=== PATIENT | male | born 1950 | race Caucasian/White ===

== ENCOUNTER 2020-06-23 12:41 | Emergency (ER) | payer OTHER | END 2020-06-23 14:28 | disposition left against medical advice (07) | LOC: ER1 12:41 | DX: Z53.21 Procedure and treatment not carried out due to patient leaving prior to being seen by health care provider (principal) | CPT/HCPCS: 93005 ==

== ENCOUNTER 2020-12-11 18:23 | Emergency (ER) | payer OTHER ==
[2020-12-11 21:33] LABS: HEMOGLOBIN 12.6 gm/dl (14.0-17.5); RED BLOOD COUNT 4.35 M/UL (4.20-5.50); WHITE BLOOD COUNT 4.9 K/UL (4.5-11.0)
[2020-12-11 22:16] LABS: BUN/CREATININE RATIO 15 (0-10)
[2020-12-11] MEDS ORDERED: PROVENTIL HFA6.7 GM INH (23:55)
[2020-12-11] MEDS ORDERED: IBUPROFEN800 MG PO (23:55)
== END 2020-12-12 02:45 | disposition home or self-care (01) ==
LOC: ER1 18:23
PROVIDERS: Physician Assistant
DX: Z23 Encounter for immunization (principal); U07.1 COVID-19; E11.9 Type 2 diabetes mellitus without complications; E78.5 Hyperlipidemia, unspecified; I10 Essential (primary) hypertension; Z95.1 Presence of aortocoronary bypass graft; Z79.01 Long term (current) use of anticoagulants
CPT/HCPCS: 71045; 80053; 82550; 82553; 83874; 83880; 84484; 85025; 99285; M0243; U0002

== ENCOUNTER 2020-12-28 08:08 | Inpatient (IN) | payer OTHER ==
[~2020-12-28] VITALS: Ht 172.7 cm; Wt 115.7 kg
[~2020-12-28 08:08] MED LIST: IBUPROFEN800 MG PO; PROVENTIL HFA6.7 GM INH
[2020-12-28 09:44] LABS: HEMOGLOBIN 11.8 gm/dl (14.0-17.5); RED BLOOD COUNT 4.16 M/UL (4.20-5.50); WHITE BLOOD COUNT 5.9 K/UL (4.5-11.0)
[2020-12-28 11:05] LABS: BUN/CREATININE RATIO 15 (0-10)
[2020-12-28] MEDS ORDERED: ATORVASTATIN CA80 MG PO (13:41)
[2020-12-28] MEDS ORDERED: ELIQUIS5 MG PO (13:41)
[2020-12-28] MEDS ORDERED: BUMETANIDE2 MG PO (13:41)
[2020-12-28] MEDS ORDERED: DOVONEX60 GM TOP (13:44)
[2020-12-28] MEDS ORDERED: BENTYL 10MG CAP10 MG PO (13:46)
[2020-12-28] MEDS ORDERED: CHOLESTYRAMINE P4 GM PO (13:46)
[2020-12-28] MEDS ORDERED: DOCUSATE SODIU1 EAC1 PO (13:47)
[2020-12-28] MEDS ORDERED: FINASTERIDE5 MG PO (13:48)
[2020-12-28] MEDS ORDERED: FLUOROURACIL40 GM TOP (13:50)
[2020-12-28] MEDS ORDERED: NOVOLOG FL100 UNIT/1 INJ (13:51)
[2020-12-28] MEDS ORDERED: LANTUS SOL100 UNIT/1 INJ (13:51)
[2020-12-28] MEDS ORDERED: ISOSORBIDE MONO30 MG PO (13:52)
[2020-12-28] MEDS ORDERED: LISINOPRIL40 MG PO (13:52)
[2020-12-28] MEDS ORDERED: PROTONIX40 MG PO (13:53)
[2020-12-28] MEDS ORDERED: METOPROLOL SUCC50 MG PO (13:53)
[2020-12-28] MEDS ORDERED: SOTALOL120 MG PO (13:54)
[2020-12-28] MEDS ORDERED: TERAZOSIN HCL10 MG PO (13:54)
--- NOTE | 2020-12-29 00:34 | NUR ---
12/28/2020 @ 23:15 - Patient on room air states that he is feeling short of breath and that it is hard to breathe. O2 sat at 91%. Oxygen applied at 2L. O2 sat increases to 94%. Patient states it is still hard to breathe. MD notified of patient conidition, obtained order to titrate O2 to keep sat above 92%. No other orders obtained. RT called, breathing treatment not due until 01:00. Explained to patient that due to covid and having a P.E, it is expected to feel like he is short of breath. Instructed patient to stay in bed to rest, keep oxygen cannula on. Patient verbalized understanding. Will continue to [facility].
[2020-12-29 02:58] LABS: HEMOGLOBIN 11.7 gm/dl (14.0-17.5); RED BLOOD COUNT 4.11 M/UL (4.20-5.50)
[2020-12-29 03:52] LABS: BUN/CREATININE RATIO 17 (0-10)
--- NOTE | 2020-12-29 12:47 | NUR ---
NOTIFIED DR. VAZQUEZ OF TELEMETRY REPORT OF 6 BEATS NSVT. NEW ORDER NOTED TO ADD MAGNESIUM TO LAB WORK AT 1300.
[2020-12-30 06:06] LABS: HEMOGLOBIN 11.2 gm/dl (14.0-17.5); RED BLOOD COUNT 3.99 M/UL (4.20-5.50); WHITE BLOOD COUNT 7.3 K/UL (4.5-11.0)
[2020-12-30 06:30] LABS: BUN/CREATININE RATIO 15 (0-10)
[2020-12-31 02:30] LABS: HEMOGLOBIN 11.5 gm/dl (14.0-17.5); RED BLOOD COUNT 4.03 M/UL (4.20-5.50); WHITE BLOOD COUNT 8.4 K/UL (4.5-11.0)
[2020-12-31 02:57] LABS: BUN/CREATININE RATIO 16 (0-10)
--- NOTE | 2020-12-31 22:59 | NUR ---
2040 PTT CRITICAL AT 212. CALLED TO DR. MAHMOOD. USE PROTOCOL, WILL HOLD FOR 2 HOURS AND RECHECK.
[2021-01-01 05:11] LABS: HEMOGLOBIN 12.2 gm/dl (14.0-17.5); RED BLOOD COUNT 4.27 M/UL (4.20-5.50); WHITE BLOOD COUNT 8.7 K/UL (4.5-11.0)
[2021-01-01 06:09] LABS: BUN/CREATININE RATIO 20 (0-10)
[2021-01-02 07:50] LABS: HEMOGLOBIN 10.7 gm/dl (14.0-17.5); RED BLOOD COUNT 3.88 M/UL (4.20-5.50)
[2021-01-02 08:21] LABS: BUN/CREATININE RATIO 22 (0-10)
[2021-01-03 03:31] LABS: HEMOGLOBIN 11.4 gm/dl (14.0-17.5); RED BLOOD COUNT 4.06 M/UL (4.20-5.50); WHITE BLOOD COUNT 8.9 K/UL (4.5-11.0)
[2021-01-03 03:49] LABS: BUN/CREATININE RATIO 22 (0-10)
[2021-01-04 09:52] LABS: HEMOGLOBIN 11.4 gm/dl (14.0-17.5); RED BLOOD COUNT 4.07 M/UL (4.20-5.50); WHITE BLOOD COUNT 8.1 K/UL (4.5-11.0)
[2021-01-04 10:13] LABS: BUN/CREATININE RATIO 24 (0-10)
--- NOTE | 2021-01-04 14:46 | NUR ---
PERFORMED WALK TEST WITH THE PT BEFORE BEING DISCHARGED HOME. OXYGEN SATURATION DROPPED TO 92%.
[2021-01-04] MEDS ORDERED: DOXYCYCLINE HY100 M2 PO (20:25)
[2021-01-04] MEDS ORDERED: DECADRON6 MG PO (20:25)
[2021-01-04] MEDS ORDERED: HUMIBID LA TAB600 MG PO (20:25)
[2021-01-04] MEDS ORDERED: PROVENTIL HFA6.7 GM INH (20:25)
[2021-01-04] MEDS ORDERED: JANTOVEN1 MG PO (20:25)
[2021-01-04] MEDS ORDERED: OMNICEF 300 MG300 MG PO (20:33)
== END 2021-01-04 21:09 | disposition home health service (06) | DRG 175 ==
LOC: ER1 08:08 → CDU 11:29 → M/S 11:29
PROVIDERS: Internal Medicine; ADMIT Internal Medicine
PROC: 3E0333Z Introduction of Anti-inflammatory into Peripheral Vein, Percutaneous Approach (ICD-10-PCS; 2020-12-28)
PROC: B24BZZ4 Ultrasonography of Heart with Aorta, Transesophageal (ICD-10-PCS; principal; 2020-12-29)
PROC: XW033E5 Introduction of Remdesivir Anti-infective into Peripheral Vein, Percutaneous Approach, New Technology Group 5 (ICD-10-PCS; 2020-12-29)
DX: I26.99 Other pulmonary embolism without acute cor pulmonale (principal); J96.01 Acute respiratory failure with hypoxia; U07.1 COVID-19; J12.82 Pneumonia due to coronavirus disease 2019; E11.9 Type 2 diabetes mellitus without complications; I10 Essential (primary) hypertension; E87.6 Hypokalemia; E78.5 Hyperlipidemia, unspecified; K21.9 Gastro-esophageal reflux disease without esophagitis; I08.1 Rheumatic disorders of both mitral and tricuspid valves; I25.10 Atherosclerotic heart disease of native coronary artery without angina pectoris; F17.210 Nicotine dependence, cigarettes, uncomplicated; I48.91 Unspecified atrial fibrillation; Z79.4 Long term (current) use of insulin; Z95.1 Presence of aortocoronary bypass graft; Z95.5 Presence of coronary angioplasty implant and graft; Z79.01 Long term (current) use of anticoagulants; Z82.49 Family history of ischemic heart disease and other diseases of the circulatory system
CPT/HCPCS: ECHO; 36415; 36600; 71045; 80053; 82550; 82553; 82803; 82962; 83605; 83690; 83735; 83874; 83880; 84132; 84484; 85025; 85027; 85379; 85610; 85652; 85730; 86140; 87040; 93005; 93306; 93970; 94640; 94664; 94760; 97161; 99285; J1100; J1644; J1650; J2185; J3475; J7030; Q9967; U0002

== ENCOUNTER 2021-02-08 19:20 | Inpatient (IN) | payer MEDICARE ==
[~2021-02-08] VITALS: Ht 172.7 cm; Wt 115.2 kg
[~2021-02-08 19:20] MED LIST changes: +ATORVASTATIN CA80 MG PO; +BENTYL 10MG CAP10 MG PO; +BUMETANIDE2 MG PO; +CHOLESTYRAMINE P4 GM PO; +DECADRON6 MG PO; +DOCUSATE SODIU1 EAC1 PO; +DOVONEX60 GM TOP; +DOXYCYCLINE HY100 M2 PO; +ELIQUIS5 MG PO; +FINASTERIDE5 MG PO; +FLUOROURACIL40 GM TOP; +HUMIBID LA TAB600 MG PO; +ISOSORBIDE MONO30 MG PO; +JANTOVEN1 MG PO; +LANTUS SOL100 UNIT/1 INJ; +LISINOPRIL40 MG PO; +METOPROLOL SUCC50 MG PO; +NOVOLOG FL100 UNIT/1 INJ; +OMNICEF 300 MG300 MG PO; +PROTONIX40 MG PO; +SOTALOL120 MG PO; +TERAZOSIN HCL10 MG PO
[2021-02-08 20:38] LABS: HEMOGLOBIN 11.6 gm/dl (14.0-17.5); RED BLOOD COUNT 4.17 M/UL (4.20-5.50); WHITE BLOOD COUNT 10.9 K/UL (4.5-11.0)
[2021-02-08 21:22] LABS: BUN/CREATININE RATIO 13 (0-10)
[2021-02-10 07:12] LABS: RED BLOOD COUNT 3.86 M/UL (4.20-5.50)
[2021-02-10 09:11] LABS: BUN/CREATININE RATIO 11 (0-10)
[2021-02-11 05:39] LABS: HEMOGLOBIN 9.6 gm/dl (14.0-17.5); WHITE BLOOD COUNT 7.2 K/UL (4.5-11.0)
[2021-02-11 05:40] LABS: RED BLOOD COUNT 3.41 M/UL (4.20-5.50)
[2021-02-11 06:50] LABS: BUN/CREATININE RATIO 16 (0-10)
[2021-02-12 06:25] LABS: HEMOGLOBIN 9.9 gm/dl (14.0-17.5); RED BLOOD COUNT 3.55 M/UL (4.20-5.50); WHITE BLOOD COUNT 6.8 K/UL (4.5-11.0)
[2021-02-12 06:43] LABS: BUN/CREATININE RATIO 15 (0-10)
--- NOTE | 2021-02-12 18:18 | NUR ---
attempted to place bruno cath but unsuccessful, pt mi well
[2021-02-13 05:16] LABS: HEMOGLOBIN 10.8 gm/dl (14.0-17.5); RED BLOOD COUNT 3.82 M/UL (4.20-5.50)
[2021-02-13 05:53] LABS: BUN/CREATININE RATIO 11 (0-10)
[2021-02-14] MEDS ORDERED: LANTUS INS100 UTS/M1 SQ (11:00)
[2021-02-14] MEDS ORDERED: PERCOCET 5/325 T1 EA PO (11:00)
== END 2021-02-14 18:20 | disposition home health service (06) | DRG 602 ==
LOC: ER1 19:20 → CDU 02-09 01:39 → PROG CARE 02-09 01:39 → MED SURG 4 02-09 01:39 → PROG CARE 02-09 03:29 → MED SURG 4 02-09 15:23
PROVIDERS: Emergency Medicine; Family Medicine; Internal Medicine; Surgery; ADMIT Internal Medicine
PROC: 0K9 Muscles, Drainage (ICD-10-PCS; principal; 2021-02-09 10:00)
DX: L02.215 Cutaneous abscess of perineum (principal); I50.33 Acute on chronic diastolic (congestive) heart failure; Z20.822 Contact with and (suspected) exposure to COVID-19; I48.0 Paroxysmal atrial fibrillation; I25.10 Atherosclerotic heart disease of native coronary artery without angina pectoris; E11.40 Type 2 diabetes mellitus with diabetic neuropathy, unspecified; E66.01 Morbid (severe) obesity due to excess calories; I11.0 Hypertensive heart disease with heart failure; N50.819 Testicular pain, unspecified; K21.9 Gastro-esophageal reflux disease without esophagitis; Z96.652 Presence of left artificial knee joint; E78.5 Hyperlipidemia, unspecified; Z86.711 Personal history of pulmonary embolism; Z95.0 Presence of cardiac pacemaker; Z87.891 Personal history of nicotine dependence; Z90.49 Acquired absence of other specified parts of digestive tract; Z95.5 Presence of coronary angioplasty implant and graft; Z82.49 Family history of ischemic heart disease and other diseases of the circulatory system; Z79.01 Long term (current) use of anticoagulants; Z86.16 Personal history of COVID-19; Z98.890 Other specified postprocedural states; Z86.718 Personal history of other venous thrombosis and embolism; Z79.899 Other long term (current) drug therapy; Z79.4 Long term (current) use of insulin; Z68.38 Body mass index [BMI] 38.0-38.9, adult; Z68.31 Body mass index [BMI] 31.0-31.9, adult
CPT/HCPCS: 36415; 71045; 76870; 80048; 80053; 80202; 82550; 82553; 82962; 83036; 83605; 83690; 84100; 84439; 84443; 84484; 85025; 85027; 85610; 85652; 86140; 87040; 87070; 87205; 93005; 94640; 94664; 94760; 96365; 96366; 96367; 96375; 99285; J1170; J1940; J2250; J2270; J2405; J2543; J2704; J3010; J3370; J7030; J7050; J7120; Q9967; U0002

== ENCOUNTER 2021-04-10 15:23 | Emergency (ER) | payer MEDICARE ==
[~2021-04-10 15:23] MED LIST changes: +LANTUS INS100 UTS/M1 SQ; +PERCOCET 5/325 T1 EA PO
[2021-04-10 21:21] LABS: HEMOGLOBIN 12.3 gm/dl (14.0-17.5); RED BLOOD COUNT 4.32 M/UL (4.20-5.50); WHITE BLOOD COUNT 9.3 K/UL (4.5-11.0)
[2021-04-10 21:32] LABS: BUN/CREATININE RATIO 13 (0-10)
[2021-04-10] MEDS ORDERED: BUMETANIDE1 MG PO (23:00)
== END 2021-04-10 23:35 | disposition home or self-care (01) ==
LOC: ER1 15:23
PROVIDERS: Physician Assistant
DX: R60.1 Generalized edema (principal); I11.0 Hypertensive heart disease with heart failure; I50.9 Heart failure, unspecified; E11.9 Type 2 diabetes mellitus without complications; I25.2 Old myocardial infarction; I48.91 Unspecified atrial fibrillation; Z86.711 Personal history of pulmonary embolism
CPT/HCPCS: 36415; 71045; 80053; 82550; 82553; 83874; 83880; 84484; 85025; 85610; 85730; 93005; 96374; 99284

== ENCOUNTER 2021-07-31 12:48 | Emergency (ER) | payer OTHER ==
[~2021-07-31 12:48] MED LIST changes: +ALDACTONE25 MG PO; +AMLODIPINE BESYL5 MG PO; +BUMETANIDE1 MG PO; +DICYCLOMINE HCL10 MG PO; +ELIQUIS 5 MG TAB5 MG PO; +KENALOG CREAM 015 GM TOP; +LANTUS INS100 UTS/M2 SQ; +LOPERAMIDE2 MG PO; +MYCOSTATIN OINT15 GM TOP; -NOVOLOG FL100 UNIT/1 INJ; +NOVOLOG FL100 UNIT/1 SQ; +ONDANSETRON HCL8 MG PO; +QUESTRAN LIGHT 44 GM PO; +SOTALOL160 MG PO; +SPIRONOLACTONE25 MG PO; +TERAZOSIN HCL5 MG PO; +VITAMIN D325 MCG PO
[2021-07-31 13:46] LABS: HEMOGLOBIN 13.5 gm/dl (14.0-17.5); RED BLOOD COUNT 4.88 M/UL (4.20-5.50); WHITE BLOOD COUNT 11.6 K/UL (4.5-11.0)
[2021-07-31 14:07] LABS: BUN/CREATININE RATIO 16 (0-10)
[2021-07-31] MEDS ORDERED: ZOFRAN 4 MG TAB4 MG PO (16:26)
== END 2021-07-31 16:37 | disposition home or self-care (01) ==
LOC: ER1 12:48
PROVIDERS: Emergency Medicine
DX: R11.2 Nausea with vomiting, unspecified (principal); R19.7 Diarrhea, unspecified; E11.9 Type 2 diabetes mellitus without complications; I11.9 Hypertensive heart disease without heart failure; Z79.84 Long term (current) use of oral hypoglycemic drugs
CPT/HCPCS: 80053; 82962; 83690; 85025; 96374; 96375; 99284; J2270; J2405; J7030; Q9967

== ENCOUNTER 2021-08-03 18:18 | Inpatient (IN) | payer OTHER, MEDICARE ==
[~2021-08-03] VITALS: Ht 172.7 cm; Wt 121.6 kg
[~2021-08-03 18:18] MED LIST changes: +ZOFRAN 4 MG TAB4 MG PO
[2021-08-03 20:04] LABS: HEMOGLOBIN 13.6 gm/dl (14.0-17.5); RED BLOOD COUNT 4.95 M/UL (4.20-5.50); WHITE BLOOD COUNT 8.5 K/UL (4.5-11.0)
[2021-08-04 01:02] LABS: ADENOVIRUS F 40/41 Not Detected (Negative); ASTROVIRUS Not Detected (Negative); CAMPYLOBACTER Not Detected (Negative); CRYPTOSPORIDIUM Not Detected (Negative); E.COLI 0157 Not Detected (Negative); ENTAMOEBA HISTOLYTICA Not Detected (Negative); ENTEROAGGREGATIVE E.COLI (EAEC Not Detected (Negative); ENTEROPATHOGENIC E.COLI (EPEC) Not Detected (Negative); ENTEROTOXIGENIC E.COLI (ETEC) Not Detected (Negative); GIARDIA LAMBLIA Not Detected (Negative); NOROVIRUS GI/GII Not Detected (Negative); PLESIOMONAS SHIGELLOIDES Not Detected (Negative); SALMONELLA Not Detected (Negative); SAPOVIRUS Not Detected (Negative); SHIG/ENTEROINVAS.ECOLI (EIEC) Not Detected (Negative); SHIGA-LIK TOX.PRO.E.COLI (STEC Not Detected (Negative); VIBRIO Not Detected (Negative); VIBRIO CHOLERAE Not Detected (Negative); YERSINIA ENTEROCOLITICA Not Detected (Negative)
[2021-08-04 10:17] LABS: ROTOVIRUS A DETECTED (Negative)
[2021-08-05 07:20] LABS: HEMOGLOBIN 11.8 gm/dl (14.0-17.5)
[2021-08-05 07:24] LABS: RED BLOOD COUNT 4.3 M/UL (4.20-5.50)
[2021-08-05 07:43] LABS: BUN/CREATININE RATIO 17 (0-10)
[2021-08-06 06:31] LABS: HEMOGLOBIN 11.5 gm/dl (14.0-17.5); RED BLOOD COUNT 4.2 M/UL (4.20-5.50); WHITE BLOOD COUNT 6.3 K/UL (4.5-11.0)
[2021-08-06 06:56] LABS: BUN/CREATININE RATIO 12 (0-10)
[2021-08-06] MEDS ORDERED: VANCOMYCIN HCL125 MG PO (12:17)
== END 2021-08-06 15:25 | disposition home or self-care (01) | DRG 372 ==
LOC: ER1 18:18 → CDU 22:08 → MED SURG 4 22:08
PROVIDERS: Internal Medicine; Student in an Organized Health Care Education/Training Program; ADMIT Internal Medicine
DX: A04.72 Enterocolitis due to Clostridium difficile, not specified as recurrent (principal); N17.9 Acute kidney failure, unspecified; I50.32 Chronic diastolic (congestive) heart failure; Z68.41 Body mass index [BMI] 40.0-44.9, adult; Z20.822 Contact with and (suspected) exposure to COVID-19; G62.9 Polyneuropathy, unspecified; K21.9 Gastro-esophageal reflux disease without esophagitis; I49.5 Sick sinus syndrome; I11.0 Hypertensive heart disease with heart failure; I48.0 Paroxysmal atrial fibrillation; E11.9 Type 2 diabetes mellitus without complications; K52.9 Noninfective gastroenteritis and colitis, unspecified; E66.01 Morbid (severe) obesity due to excess calories; I25.10 Atherosclerotic heart disease of native coronary artery without angina pectoris; Z95.1 Presence of aortocoronary bypass graft; Z95.0 Presence of cardiac pacemaker; Z79.01 Long term (current) use of anticoagulants; Z86.711 Personal history of pulmonary embolism; Z90.49 Acquired absence of other specified parts of digestive tract; Z98.890 Other specified postprocedural states; Z82.49 Family history of ischemic heart disease and other diseases of the circulatory system; Z87.891 Personal history of nicotine dependence; Z79.4 Long term (current) use of insulin
CPT/HCPCS: 36415; 80048; 80053; 81001; 82570; 82962; 83036; 83690; 83735; 84100; 84300; 85025; 87324; 87449; 87507; 93005; 96374; 99285; J2405; J3475; J7030; U0002

== ENCOUNTER 2021-08-21 12:55 | Observation (INO) | payer OTHER, MEDICARE ==
[~2021-08-21] VITALS: Ht 172.7 cm; Wt 83.9 kg
[~2021-08-21 12:55] MED LIST changes: +VANCOMYCIN HCL125 MG PO
[2021-08-21 13:41] LABS: HEMOGLOBIN 11.4 gm/dl (14.0-17.5); RED BLOOD COUNT 4.1 M/UL (4.20-5.50); WHITE BLOOD COUNT 7.6 K/UL (4.5-11.0)
[2021-08-21 14:30] LABS: BUN/CREATININE RATIO 14 (0-10)
[2021-08-21] MEDS ORDERED: CHOLESTYRAMINE L4 GM PO (17:05)
[2021-08-21] MEDS ORDERED: ATORVASTATIN CA80 MG PO (17:05)
[2021-08-21] MEDS ORDERED: SPIRONOLACTONE25 MG PO (17:06)
[2021-08-22] MEDS ORDERED: LISINOPRIL30 MG PO (10:59)
[2021-08-22] MEDS ORDERED: LIPITOR40 MG PO (10:59)
[2021-08-22] MEDS ORDERED: METOCLOPRAMIDE10 MG PO (10:59)
== END 2021-08-22 13:08 | disposition home or self-care (01) ==
LOC: ER1 12:55 → M/S 16:29 → CDU 16:29 → M/S 20:15
PROVIDERS: Physician Assistant; ADMIT Internal Medicine Infectious Disease
DX: R11.0 Nausea (principal); R42 Dizziness and giddiness; Z20.822 Contact with and (suspected) exposure to COVID-19; I25.10 Atherosclerotic heart disease of native coronary artery without angina pectoris; I48.0 Paroxysmal atrial fibrillation; I11.0 Hypertensive heart disease with heart failure; I50.32 Chronic diastolic (congestive) heart failure; K21.9 Gastro-esophageal reflux disease without esophagitis; K44.9 Diaphragmatic hernia without obstruction or gangrene; E11.43 Type 2 diabetes mellitus with diabetic autonomic (poly)neuropathy; K31.84 Gastroparesis; Z79.4 Long term (current) use of insulin; Z79.01 Long term (current) use of anticoagulants; Z79.899 Other long term (current) drug therapy; Z87.891 Personal history of nicotine dependence; Z88.8 Allergy status to other drugs, medicaments and biological substances; Z95.0 Presence of cardiac pacemaker; Z95.1 Presence of aortocoronary bypass graft; Z95.5 Presence of coronary angioplasty implant and graft
CPT/HCPCS: 70450; 71045; 80053; 82550; 82553; 83735; 84484; 85025; 93005; 99285; G0378; U0002